=== PATIENT | female | born 1970 | race American Indian/Alaskan Native ===

== ENCOUNTER 2016-12-31 12:50 | Emergency (ER) | payer OTHER ==
[2016-12-31] MEDS ORDERED: TORADOL IM ONE (13:16)
--- NOTE | 2016-12-31 13:16 | Emergency Department Report ---
Stated Complaint: RIGHT KNEE PAIN Time Seen by Provider: 12/31/16 13:11 - HPI History of Present Illness: PT states she takes Tramadol for R knee pain but it makes her sick. PT states she needs a knee replacement. PT is a pt of [facility]. PT states she has a work note for frequent sitting but her work is not allowing that. PT states she was at work and the pain increased. - ROS Review of Systems: + knee pain - Exam Physical Exam: ambulatory with limp MSE screening note: Focused history and physical exam performed. Due to findings the following was ordered: med ED Disposition for MSE Condition: Stable
[2016-12-31 13:18] VITALS: BP 126/89
[2016-12-31] MEDS: TORADOL IM ONE (17:07)
--- NOTE | 2016-12-31 18:07 | Emergency Department Report ---
Entered by ALYCIA SYLVESTER, acting as scribe for JANELLE BRISENO NP. ED Extremity Problem HPI - General Chief complaint: Extremity Injury, Lower Stated complaint: RIGHT KNEE PAIN Time Seen by Provider: 12/31/16 13:11 Source: patient Mode of arrival: Ambulatory Limitations: No Limitations - History of Present Illness Initial comments: This is a 46 y/o female, nontoxic, well nourished in appearance, no acute signs of distress with a PMHx of arthritis and chronic right knee pain presents with an acute episode of chronic right knee pain that began this morning. 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 Rates pain a 10/10 in severity, which she describes as aching in quality. Aggravated with weight bearing, movement, palpation, and exertion, and alleviated with immobilization. Denies any recent knee trauma/injury, numbness, tingling, fever, chills, chest pain, SOB, KIM, and dizziness. Patient states she takes prescribed Tramadol for right knee pain, which she states she stopped taking because it made her sick. Patient states she goes to [facility] for pain management and she reports she needs a knee replacement. Reports she hasn't been able to get into contact with her orthopedic today to obtain different pain medication for relief. Notes she's been having chronic right knee pain for 13 years. Patient requests a knee immobilizer and a strong medication in the ED for her to sleep in. Patient's boyfriend is currently bedside. NKDA. MENDEZ Complaint: joint paint -: This morning Location: right, knee History of Same: Yes (x 13 years) -: No myalgia, Yes arthralgia, No fever, No associated dyspnea, No associated chest pain Radiation: none Severity scale (0 -10): 10 Quality: aching Consistency: constant Improves with: immobilization Worsens with: weight bearing, walking, exertion, palpation Associated Symptoms: denies other symptoms, arthralgias. denies: chest pain, shortness of breath, fever, myalgias, rash - Related Data Previous Rx's Medication Instructions Recorded Last Taken Type Nitrofurantoin [place]/M-Cryst 100 mg PO Q12HR #14 capsule 11/07/13 Unknown Rx [Macrobid] Ondansetron [Zofran Odt] 4 mg PO Q4H #10 tab.rapdis 11/07/13 Unknown Rx traMADol [Ultram] 50 mg PO Q6HR PRN #20 tablet 05/10/15 Unknown Rx Acetaminophen/Codeine [Tylenol #3] 1 tab PO Q6H PRN #15 tab 06/05/16 Unknown Rx Amoxicillin [Amoxicillin TAB] 875 mg PO BID #20 tablet 06/05/16 Unknown Rx Ibuprofen [Motrin] 600 mg PO Q8H PRN #21 tablet 06/05/16 Unknown Rx HYDROcodone/APAP 7.5-325 [Gepp 1 each PO Q6HR PRN #6 tablet 12/31/16 Unknown Rx 7.5/325] Allergies Allergy/AdvReac Type Severity Reaction Status Date / Time No Known Allergies Allergy Verified 05/09/15 23:59 ED Review of Systems Comment: All other systems reviewed and negative Constitutional: denies: chills, fever Eyes: denies: eye pain, eye discharge, vision change ENT: denies: ear pain, throat pain Respiratory: denies: cough, orthopnea, shortness of breath, SOB with exertion, SOB at rest, stridor, wheezing Cardiovascular: denies: chest pain, palpitations, dyspnea on exertion, orthopnea , edema, syncope, paroxysmal nocturnal dyspnea Endocrine: no symptoms reported Gastrointestinal: denies: abdominal pain, nausea, vomiting, diarrhea Genitourinary: denies: urgency, dysuria, discharge Musculoskeletal: arthralgia (RT knee pain). denies: back pain, joint swelling, myalgia Skin: denies: rash, lesions Neurological: denies: headache, weakness, paresthesias Psychiatric: denies: anxiety, depression Hematological/Lymphatic: denies: easy bleeding, easy bruising ED Past Medical Hx - Past Medical History Previous Medical History?: Yes Hx Arthritis: Yes Additional medical history: Miscarriage, Right knee pain for 13 years - Surgical History Past Surgical History?: Yes Additional Surgical History: D&C - Family History Family history: no significant - Social History Smoking Status: Current Every Day Smoker Substance Use Type: Alcohol, Marijuana, Prescribed - Medications Home Medications: Home Medications Medication Instructions Recorded Confirmed Last Taken Type Nitrofurantoin [place]/M-Cryst 100 mg PO Q12HR #14 capsule 11/07/13 Unknown Rx [Macrobid] Ondansetron [Zofran Odt] 4 mg PO Q4H #10 tab.rapdis 07/13/14 Unknown Rx traMADol [Ultram] 50 mg PO Q6HR PRN #20 tablet 05/10/15 Unknown Rx Acetaminophen/Codeine [Tylenol #3] 1 tab PO Q6H PRN #15 tab 06/05/16 Unknown Rx Amoxicillin [Amoxicillin TAB] 875 mg PO BID #20 tablet 06/05/16 Unknown Rx Ibuprofen [Motrin] 600 mg PO Q8H PRN #21 tablet 06/05/16 Unknown Rx HYDROcodone/APAP 7.5-325 [Gepp 1 each PO Q6HR PRN #6 tablet 12/31/16 Unknown Rx 7.5/325] ED Physical Exam - General Limitations: No Limitations General appearance: alert, in no apparent distress - Head Head exam: Present: atraumatic, normocephalic - Eye Eye exam: Present: normal appearance, PERRL, EOMI. Absent: scleral icterus, conjunctival injection, nystagmus, periorbital swelling, periorbital tenderness Pupils: Present: normal accommodation - ENT ENT exam: Present: normal exam, normal orophraynx, mucous membranes moist, TM's normal bilaterally, normal external ear exam - Neck Neck exam: Present: normal inspection, full ROM. Absent: tenderness, meningismus, lymphadenopathy, thyromegaly - Respiratory Respiratory exam: Present: normal lung sounds bilaterally. Absent: respiratory distress, wheezes, rales, rhonchi, stridor, chest wall tenderness, accessory muscle use, decreased breath sounds, prolonged expiratory - Cardiovascular Cardiovascular Exam: Present: regular rate, normal rhythm, normal heart sounds. Absent: bradycardia, tachycardia, irregular rhythm, systolic murmur, diastolic murmur, rubs, gallop - GI/Abdominal GI/Abdominal exam: Present: soft, normal bowel sounds. Absent: distended, tenderness, guarding, rebound, rigid - Extremities Exam Extremities exam: Present: full ROM, tenderness (anterior aspect of RT knee), normal capillary refill. Absent: normal inspection, pedal edema, joint swelling , calf tenderness - Expanded Lower Extremity Exam Right Hip exam: Present: normal inspection, full ROM, external rotation, internal rotation, pelvic stability. Absent: tenderness, swelling, abrasion, laceration , ecchymosis, deformity, crepidus, dislocation, erythema, shortening Upper Leg exam: Present: normal inspection, full ROM. Absent: tenderness, swelling, abrasion, laceration, ecchymosis, deformity, crepidus, dislocation, erythema Knee exam: Present: full ROM, tenderness (antreior aspect of RT knee), full knee extension. Absent: normal inspection, swelling, abrasion, laceration, ecchymosis, deformity, crepidus, dislocation, erythema, effusion, pain w/ pronation/supination, posterior draw sign, pain/laxity with valgus, pain/laxity with varus Lower Leg exam: Present: normal inspection, full ROM. Absent: tenderness, swelling, abrasion, laceration, ecchymosis, deformity, crepidus, dislocation, erythema, palpable cord, Libby's sign Ankle exam: Present: normal inspection, full ROM. Absent: tenderness, swelling , abrasion, laceration, ecchymosis, deformity, crepidus, dislocation, erythema, anterior draw sign Foot/Toe exam: Present: normal inspection, full ROM. Absent: tenderness, swelling, abrasion, laceration, ecchymosis, deformity, crepidus, dislocation, erythema, amputation, puncture wound, foreign body, calcaneal tenderness, tenderness at base of 5th metatarsal, nail avulsion, subungual hematoma Neuro vascular tendon exam: Present: no vascular compromise. Absent: pulse deficit, abnormal cap refill, motor deficit, sensory deficit, tendon deficit, extremity cold to touch, pallor, abnormal 2-point discrimination, decreased fine /light touch, foot drop, peroneal nerve deficit, significant pain with passive ROM of distal joint Gait: Positive: observed and normal - Back Exam Back exam: Present: normal inspection, full ROM. Absent: tenderness, CVA tenderness (R), CVA tenderness (L), muscle spasm, paraspinal tenderness, vertebral tenderness - Neurological Exam Neurological exam: Present: alert, oriented X3, CN II-XII intact, normal gait, reflexes normal. Absent: motor sensory deficit - Psychiatric Psychiatric exam: Present: normal affect, normal mood - Skin Skin exam: Present: warm, dry, intact. Absent: rash ED Course Vital Signs 12/31/16 13:13 Temperature 98.1 F Pulse Rate 84 Respiratory 20 Rate Blood Pressure 126/89 O2 Sat by Pulse 100 Oximetry ED Medical Decision Making - Medical Decision Making This is a 46-year-old female with a chronic right knee pain. Patient came in with a prescription of tramadol and stated this does not help her pain and is requested for a stronger medication. Patient stated she was not able to follow up with her orthopedic doctor because the office was closed. Patient states she was able to sleep due to the pain. Patient also requesting for a knee immobilizer. Patient received Gepp 7.5 mg for 2 days with hoping she will follow up with her orthopedic doctor by then and was instructed to not operate any machinery while taking Gepp. ED Disposition Clinical Impression: Chronic knee pain Qualifiers: Laterality: right Qualified Code(s): M25.561 - Pain in right knee; G89.29 - Other chronic pain Disposition: - TO HOME OR SELFCARE Is pt being admited?: No Does the pt Need Aspirin: No Condition: Stable Instructions: Knee Pain (ED), Knee Immobilizer (ED) Additional Instructions: Follow-up with your orthopedic doctor in 24 hours course of his worsening continue with the emergency room as soon as possible. Taken Gepp as prescribed for pain as needed but do not operate any machinery while taking Gepp due to sedation. Prescriptions: HYDROcodone/APAP 7.5-325 [Gepp 7.5/325] 1 each PO Q6HR PRN #6 tablet PRN Reason: Pain Referrals: PRIMARY CARE, [Primary Care Provider] - 3-5 Days MORGAN CORRALES MD [Staff Physician] - 3-5 Days [facility] [Outside] - 3-5 Days [facility] [Outside] - 3-5 Days This documentation as recorded by the NGA harris JASMINE,accurately reflects the service I personally performed and the decisions made by ,JANELLE BRISENO, NATACHA.
== END 2016-12-31 17:07 | disposition home or self-care (01) ==
LOC: ED 12:50
DX: M25.561 Pain in right knee (principal); G89.29 Other chronic pain; M19.90 Unspecified osteoarthritis, unspecified site; F17.200 Nicotine dependence, unspecified, uncomplicated; F12.10 Cannabis abuse, uncomplicated; X58.XXXA Exposure to other specified factors, initial encounter; Y93.89 Activity, other specified; Y92.89 Other specified places as the place of occurrence of the external cause; Y99.8 Other external cause status
CPT/HCPCS: 29505; 96372; 99282; J1885

== ENCOUNTER 2017-03-14 00:02 | Inpatient (IN) | payer OTHER, MEDICAID ==
[2017-03-14 00:44] LABS: Basophils % (Auto) 0.7 % (0.0-1.8); Eosinophils % (Auto) 1.4 % (0.0-4.3); Hematocrit 47.3 % (30.3-42.9); Hemoglobin 15.3 gm/dl (10.1-14.3); Mean Corpuscular HGB Conc 32 % (30-34); Mean Corpuscular Hemoglobin 29 pg (28-32); Mean Corpuscular Volume 90 fl (79-97); Platelet Count 209 K/mm3 (140-440); Red Blood Count 5.27 M/mm3 (3.65-5.03); Red Cell Distribution Width 15.3 % (13.2-15.2)
[2017-03-14 01:00] LABS: INR 0.8 (0.87-1.13)
[2017-03-14 01:01] LABS: Partial Thromboplastin Time 28.4 Sec. (24.2-36.6)
[2017-03-14 01:02] LABS: Anion Gap 21 mmol/L; BUN/Creatinine Ratio 17; Blood Urea Nitrogen 15 mg/dL (7-17); Calcium 8.9 mg/dL (8.4-10.2); Carbon Dioxide 24 mmol/L (22-30); Chloride 97.7 mmol/L (98-107); Glucose 96 mg/dL (65-100); Potassium 4.4 mmol/L (3.6-5.0); Sodium 138 mmol/L (137-145)
[2017-03-14] MEDS ORDERED: NORCO 5/325 PO ONE (06:25)
[2017-03-14] MEDS ORDERED: ASPIRIN PO ONE (06:25)
--- NOTE | 2017-03-14 06:31 | Emergency Department Report ---
HPI - General Chief Complaint: Neuro Symptoms/Deficit Time Seen by Provider: 03/14/17 06:11 - HPI HPI: Room 1 The patient is a 46-year-old female presented with a chief complaint of right lower extremity and chest pain. The patient states 4 days ago she developed pain in her right calf. Patient denies any recent trauma. Patient states she has a history of "3 disc problems" in her lower back which required "injections. " Patient states she had never had Pain before. The patient states she contacted her orthopedic surgeon soon turn advised her to come to the ED. The patient states she went to [facility] and had labs drawn. The patient states the provider told her her blood work was abnormal and they wanted to perform a Doppler of her right lower extremity. The patient states she left the facility before receiving her Doppler secondary to the wait. The patient states her family convinced her to come back to the emergency department. The patient states 4 days ago she also developed substernal chest pressure that has been intermittent and associated with diaphoresis. Patient denies shortness of breath or nausea/vomiting. Patient states she's never had a stress test or cardiac catheterization Location: Chest, right lower extremity Duration: 5 days Quality: Pain, pressure Severity: 02/04 Modifying factors: [see above] Context: [see above] Mode of transportation: [not driving] ED Past Medical Hx - Past Medical History Hx Arthritis: Yes Additional medical history: Miscarriage, Right knee pain for 13 years - Surgical History Additional Surgical History: D&C - Family History Family history: no significant - Social History Smoking Status: Never Smoker Substance Use Type: None - Medications Home Medications: Home Medications Medication Instructions Recorded Confirmed Last Taken Type Nitrofurantoin [place]/M-Cryst 100 mg PO Q12HR #14 capsule 11/07/13 Unknown Rx [Macrobid] Ondansetron [Zofran Odt] 4 mg PO Q4H #10 tab.rapdis 11/07/13 Unknown Rx traMADol [Ultram] 50 mg PO Q6HR PRN #20 tablet 05/10/15 Unknown Rx Acetaminophen/Codeine [Tylenol #3] 1 tab PO Q6H PRN #15 tab 06/05/16 Unknown Rx Amoxicillin [Amoxicillin TAB] 875 mg PO BID #20 tablet 06/05/16 Unknown Rx Ibuprofen [Motrin] 600 mg PO Q8H PRN #21 tablet 06/05/16 Unknown Rx HYDROcodone/APAP 7.5-325 [[place] 1 each PO Q6HR PRN #6 tablet 12/31/16 Unknown Rx 7.5/325] ED Review of Systems ROS: Stated complaint: leg numbness Other details as noted in HPI Comment: All other systems reviewed and negative Constitutional: denies: chills, fever Eyes: denies: eye pain, eye discharge, vision change ENT: denies: ear pain, throat pain Respiratory: denies: cough, shortness of breath, wheezing Cardiovascular: chest pain Endocrine: no symptoms reported Gastrointestinal: denies: abdominal pain, nausea, diarrhea Genitourinary: denies: urgency, dysuria, discharge Musculoskeletal: myalgia Skin: denies: rash, lesions Neurological: paresthesias. denies: headache, weakness Psychiatric: denies: anxiety, depression Hematological/Lymphatic: denies: easy bleeding, easy bruising Physical Exam - Physical Exam Vital Signs: Vital Signs 03/14/17 03/14/17 03/14/17 00:14 01:50 01:53 Temperature 98.1 F 98 F Pulse Rate 108 H 90 Respiratory 18 16 Rate Blood Pressure 124/93 137/83 Blood Pressure 137/83 [Left] O2 Sat by Pulse 100 100 Oximetry 03/14/17 03/14/17 03/14/17 02:00 02:15 02:30 Temperature Pulse Rate Respiratory Rate Blood Pressure 114/78 126/81 112/64 Blood Pressure [Left] O2 Sat by Pulse 100 Oximetry 03/14/17 03/14/17 03/14/17 02:45 03:00 03:15 Temperature Pulse Rate Respiratory Rate Blood Pressure 108/66 112/63 112/64 Blood Pressure [Left] O2 Sat by Pulse 100 97 100 Oximetry 03/14/17 03/14/17 03/14/17 03:30 03:45 04:00 Temperature Pulse Rate Respiratory Rate Blood Pressure 130/86 115/67 103/50 Blood Pressure [Left] O2 Sat by Pulse 100 100 100 Oximetry 03/14/17 03/14/17 03/14/17 04:15 04:30 04:45 Temperature Pulse Rate Respiratory Rate Blood Pressure 130/86 100/55 110/65 Blood Pressure [Left] O2 Sat by Pulse 100 99 99 Oximetry 03/14/17 03/14/17 03/14/17 05:00 05:15 05:30 Temperature Pulse Rate Respiratory Rate Blood Pressure 117/70 96/53 100/55 Blood Pressure [Left] O2 Sat by Pulse 99 100 100 Oximetry Physical Exam: GENERAL: The patient is well-developed well-nourished female sleeping on stretcher not appearing to be in acute distress. [] HEENT: Normocephalic. Atraumatic. Extraocular motions are intact. Patient has moist mucous membranes. NECK: Supple. Trachea midline CHEST/LUNGS: There is no respiratory distress noted. HEART/CARDIOVASCULAR: Regular. There is no tachycardia. ABDOMEN: Abdomen is soft, nontender. Patient has normal bowel sounds. There is no abdominal distention. SKIN: There is no rash. There is no edema. There is no diaphoresis. NEURO: The patient is awake, alert, and oriented. The patient is cooperative. The patient has no focal neurologic deficits. The patient has normal speech. Cranial nerves II through XII grossly intact, no drift. Normal sensation throughout MUSCULOSKELETAL: There is pain in the right calf. There is no evidence of acute injury. ED Course Vital Signs 03/14/17 03/14/17 03/14/17 00:14 01:50 01:53 Temperature 98.1 F 98 F Pulse Rate 108 H 90 Respiratory 18 16 Rate Blood Pressure 124/93 137/83 Blood Pressure 137/83 [Left] O2 Sat by Pulse 100 100 Oximetry 03/14/17 03/14/17 03/14/17 02:00 02:15 02:30 Temperature Pulse Rate Respiratory Rate Blood Pressure 114/78 126/81 112/64 Blood Pressure [Left] O2 Sat by Pulse 100 Oximetry 03/14/17 03/14/17 03/14/17 02:45 03:00 03:15 Temperature Pulse Rate Respiratory Rate Blood Pressure 108/66 112/63 112/64 Blood Pressure [Left] O2 Sat by Pulse 100 97 100 Oximetry 03/14/17 03/14/17 03/14/17 03:30 03:45 04:00 Temperature Pulse Rate Respiratory Rate Blood Pressure 130/86 115/67 103/50 Blood Pressure [Left] O2 Sat by Pulse 100 100 100 Oximetry 03/14/17 03/14/17 03/14/17 04:15 04:30 04:45 Temperature Pulse Rate Respiratory Rate Blood Pressure 130/86 100/55 110/65 Blood Pressure [Left] O2 Sat by Pulse 100 99 99 Oximetry 03/14/17 03/14/17 03/14/17 05:00 05:15 05:30 Temperature Pulse Rate Respiratory Rate Blood Pressure 117/70 96/53 100/55 Blood Pressure [Left] O2 Sat by Pulse 99 100 100 Oximetry ED Medical Decision Making - Lab Data Result diagrams: 03/14/17 00:29 03/14/17 00:29 Laboratory Tests 03/14/17 03/14/17 03/14/17 00:29 00:29 00:29 WBC 11.0 RBC 5.27 H Hgb 15.3 H Hct 47.3 H MCV 90 MCH 29 MCHC 32 RDW 15.3 H Plt Count 209 Lymph % (Auto) 22.5 [place] % (Auto) 10.0 H Eos % (Auto) 1.4 Baso % (Auto) 0.7 Lymph # 2.5 [place] # 1.1 H Eos # 0.2 Baso # 0.1 Seg Neutrophils % 65.4 Seg Neutrophils # 7.2 PT 11.5 L INR 0.80 L APTT 28.4 Sodium 138 Potassium 4.4 Chloride 97.7 L Carbon Dioxide 24 Anion Gap 21 BUN 15 Creatinine 0.9 Estimated GFR > 60 BUN/Creatinine Ratio 17 Glucose 96 Calcium 8.9 Total Creatine Kinase CK-MB (CK-2) CK-MB (CK-2) Rel Index Troponin T HCG, Qual 03/14/17 03/14/17 00:29 00:29 WBC RBC Hgb Hct MCV MCH MCHC RDW Plt Count Lymph % (Auto) [place] % (Auto) Eos % (Auto) Baso % (Auto) Lymph # [place] # Eos # Baso # Seg Neutrophils % Seg Neutrophils # PT INR APTT Sodium Potassium Chloride Carbon Dioxide Anion Gap BUN Creatinine Estimated GFR BUN/Creatinine Ratio Glucose Calcium Total Creatine Kinase 75 CK-MB (CK-2) 1.4 CK-MB (CK-2) Rel Index 1.8 Troponin T < 0.010 HCG, Qual Negative - EKG Data -: EKG Interpreted by Me EKG shows normal: sinus rhythm Rate: normal - EKG Data When compared to previous EKG there are: previous EKG unavailable - Radiology Data Radiology results: report reviewed (right lower extremity Doppler), image reviewed (chest x-ray, right lower extremities Doppler) interpreted by me: Chest x-ray-ET tube in place. No focal infiltrate, no pneumothorax Right lower extremities Doppler (discussed with technologist)-positive DVT - Differential Diagnosis DVT, ACS, pericarditis, GERD Critical care attestation.: If time is entered above; I have spent that time in minutes in the direct care of this critically ill patient, excluding procedure time. ED Disposition Clinical Impression: Chest pressure, Right leg DVT Disposition: OP ADMIT IP TO THIS HOSP Is pt being admited?: Yes Does the pt Need Aspirin: Yes Condition: Fair Referrals: PRIMARY CARE, [Primary Care Provider] - 3-5 Days Time of Disposition: 10:25 (hospitalist notified)
[2017-03-14 06:47] LABS: Creatine Kinase MB 1.4 ng/mL (0.0-4.0)
[2017-03-14 06:48] LABS: Creatine Kinase 75 units/L (30-135)
--- NOTE | 2017-03-14 08:57 | XRay Report ---
Single view chest: History: Chest pain. Findings: Normal cardiomediastinal silhouette. Trachea is midline. No consolidation, pneumothorax or pleural effusion. Impression: No acute cardiopulmonary findings.
[2017-03-14] MEDS ORDERED: LOVENOX SUB-Q ONE (09:21)
--- NOTE | 2017-03-14 10:15 | Cat Scan Report ---
CTA chest: History: Chest pain. Findings: There is no evidence of aortic aneurysm or pulmonary embolism. No pleural or pericardial effusion. No mediastinal mass. Bilateral basilar scarring. No consolidation or nodularity. Impression: Bibasilar scarring.
[2017-03-14] MEDS ORDERED: DULCOLAX PR PRN (14:06)
[2017-03-14] MEDS ORDERED: ZOFRAN IV PRN (14:06)
[2017-03-14] MEDS ORDERED: TYLENOL PO PRN (14:06)
[2017-03-14] MEDS ORDERED: MILK OF MAGNESIA PO PRN (14:06)
--- NOTE | 2017-03-14 14:14 | History and Physical Report ---
History of Present Illness Date of examination: 03/14/17 Date of admission: 03/14/17 10:22 History of present illness: This is a 46-year-old female who presents with chief complaint of right lower extremity pain and chest pain. Patient denies any chest pain currently. No shortness of breath or diaphoresis. The patient states 4 days ago she also developed substernal chest pressure that has been intermittent and associated with diaphoresis. The patient reportedly contacted her orthopedic surgeon regarding her lower extremity pain and was told to come to the emergency room. Patient denies any other complaints or past medical history. No headaches or visual disturbance. No cough or cold symptoms. No fever chills. Past History Past Medical History: No medical history Past Surgical History: No surgical history Social history: no significant social history Family history: no significant family history Medications and Allergies Allergies Allergy/AdvReac Type Severity Reaction Status Date / Time No Known Allergies Allergy Verified 05/09/15 23:59 Home Medications Medication Instructions Recorded Confirmed Last Taken Type Acetaminophen/Codeine [Tylenol #3] 1 tab PO Q6H PRN 03/14/17 03/14/17 Unknown History Cyclobenzaprine [Flexeril] 10 mg PO HS 03/14/17 03/14/17 Unknown History Ibuprofen [Motrin] 800 mg PO Q8HR PRN 03/14/17 03/14/17 Unknown History Active Meds: Active Medications Acetaminophen (Tylenol) 650 mg PO Q4H PRN PRN Reason: Pain MILD(1-3)/Fever >100.5/KIM Acetaminophen/Hydrocodone Bitart ([place] 5/325) 1 each PO Q6H PRN PRN Reason: Pain, Moderate (4-6) Bisacodyl (Dulcolax) 10 mg CO QDAY PRN PRN Reason: Constipation unrelieved by MOM Influenza Virus Vaccine Quadrival (Fluarix Quad [id number](36 Mos+) 0.5 ml IM .ONCE ONE Stop: 03/15/17 12:01 Magnesium Hydroxide (Milk Of Magnesia) 30 ml PO Q4H PRN PRN Reason: Constipation Review of Systems All systems: negative Exam - Constitutional Vitals: Temp Pulse Resp BP Pulse Ox 98 F 90 16 100/55 100 03/14/17 01:50 03/14/17 01:50 03/14/17 06:55 03/14/17 05:30 03/14/17 05:30 General appearance: Present: no acute distress, well-nourished - EENT Eyes: Present: PERRL ENT: hearing intact, clear oral mucosa - Neck Neck: Present: supple, normal ROM - Respiratory Respiratory effort: normal Respiratory: bilateral: CTA - Cardiovascular Heart Sounds: Present: S1 & S2. Absent: rub, click - Extremities Extremities: pulses symmetrical, No edema Peripheral Pulses: within normal limits - Abdominal General gastrointestinal: Present: soft, non-tender, non-distended, normal bowel sounds Female genitourinary: Present: normal - Integumentary Integumentary: Present: clear, warm, dry - Musculoskeletal Musculoskeletal: gait normal, strength equal bilaterally - Psychiatric Psychiatric: appropriate mood/affect, intact judgment & insight - Neurologic Neurologic: CNII-XII intact, moves all extremities Results - Labs CBC & Chem 7: 03/14/17 00:29 03/14/17 00:29 Labs: Laboratory Last Values WBC 11.0 K/mm3 (4.5-11.0) 03/14/17 00:29 RBC 5.27 M/mm3 (3.65-5.03) H 03/14/17 00:29 Hgb 15.3 gm/dl (10.1-14.3) H 03/14/17 00:29 Hct 47.3 % (30.3-42.9) H 03/14/17 00:29 MCV 90 fl (79-97) 03/14/17 00:29 MCH 29 pg (28-32) 03/14/17 00:29 MCHC 32 % (30-34) 03/14/17 00:29 RDW 15.3 % (13.2-15.2) H 03/14/17 00:29 Plt Count 209 K/mm3 (140-440) 03/14/17 00:29 Lymph % (Auto) 22.5 % (13.4-35.0) 03/14/17 00:29 [place] % (Auto) 10.0 % (0.0-7.3) H 03/14/17 00:29 Eos % (Auto) 1.4 % (0.0-4.3) 03/14/17 00:29 Baso % (Auto) 0.7 % (0.0-1.8) 03/14/17 00: Lymph # 2.5 K/mm3 (1.2-5.4) 03/14/17 00: [place] # 1.1 K/mm3 (0.0-0.8) H 03/14/17 00: Eos # 0.2 K/mm3 (0.0-0.4) 03/14/17 00: Baso # 0.1 K/mm3 (0.0-0.1) 03/14/17: Seg Neutrophils % 65.4 % (40.0-70.0) 03/14/17 00: Seg Neutrophils # 7.2 K/mm3 (1.8-7.7) 03/14/17: PT 11.5 Sec. (12.2-14.9) L 03/14/17: INR 0.80 (0.87-1.13) L 03/14/17: APTT 28.4 Sec. (24.2-36.6) 03/14/17 00: Sodium 138 mmol/L (137-145) 03/14/17 00: Potassium 4.4 mmol/L (3.6-5.0) 03/14/17: Chloride 97.7 mmol/L (98-107) L 03/14/17: Carbon Dioxide 24 mmol/L (22-30) 03/14/17: Anion Gap 21 mmol/L 03/14/17: BUN 15 mg/dL (7-17) 03/14/17: Creatinine 0.9 mg/dL (0.7-1.2) 03/14/17 00: Estimated GFR > 60 ml/min 03/14/17 00: BUN/Creatinine Ratio 17 % 03/14/17: Glucose 96 mg/dL (65-100) 03/14/17: Calcium 8.9 mg/dL (8.4-10.2) 03/14/17: Total Creatine Kinase 75 units/L (30-135) 03/14/17 00: CK-MB (CK-2) 1.4 ng/mL (0.0-4.0) 03/14/17 00: CK-MB (CK-2) Rel Index 1.8 (0-4) 03/14/17 00:29 Troponin T < 0.010 ng/mL (0.00-0.029) 03/14/17 00:29 HCG, Qual Negative (Negative) 03/14/17 00:29 Assessment and Plan Assessment and plan: Right lower extremity DVT. Patient with acute DVT in the right peroneal veins. Patient has been started on Lovenox. I have discussed the case with case management regarding potential discharge with teddy with regards to her insurance. CTA negative for PE. Chest pain. Patient will be scheduled for stress thallium in the morning.
[2017-03-14] MEDS ORDERED: SODIUM CHLORIDE FLUSH SYRINGE 10 ML IV PRN (14:15)
[2017-03-14] MEDS: NORCO 5/325 PO PRN ×2 (14:17→20:08)
[2017-03-14 14:57] LABS: Basophils % (Auto) 0.4 % (0.0-1.8); Eosinophils % (Auto) 2.3 % (0.0-4.3); Hematocrit 42.8 % (30.3-42.9); Hemoglobin 14.2 gm/dl (10.1-14.3); Mean Corpuscular HGB Conc 33 % (30-34); Mean Corpuscular Hemoglobin 29 pg (28-32); Mean Corpuscular Volume 89 fl (79-97); Platelet Count 204 K/mm3 (140-440); Red Blood Count 4.83 M/mm3 (3.65-5.03); Red Cell Distribution Width 15.6 % (13.2-15.2); White Blood Count 7.9 K/mm3 (4.5-11.0)
[2017-03-14 15:48] LABS: Anion Gap 16 mmol/L; BUN/Creatinine Ratio 14; Blood Urea Nitrogen 11 mg/dL (7-17); Calcium 8.3 mg/dL (8.4-10.2); Carbon Dioxide 29 mmol/L (22-30); Chloride 99.5 mmol/L (98-107); Glucose 78 mg/dL (65-100); Potassium 3.8 mmol/L (3.6-5.0); Sodium 141 mmol/L (137-145)
[2017-03-15] MEDS: NORCO 5/325 PO PRN ×4 (05:31→23:16)
[2017-03-15 06:29] LABS: Hemoglobin 13.9 gm/dl (10.1-14.3); Red Blood Count 4.79 M/mm3 (3.65-5.03); White Blood Count 6.8 K/mm3 (4.5-11.0)
[2017-03-15 06:30] LABS: Basophils % (Auto) 0.5 % (0.0-1.8); Eosinophils % (Auto) 1.6 % (0.0-4.3); Hematocrit 42.4 % (30.3-42.9); Mean Corpuscular HGB Conc 33 % (30-34); Mean Corpuscular Hemoglobin 29 pg (28-32); Mean Corpuscular Volume 88 fl (79-97); Platelet Count 194 K/mm3 (140-440); Red Cell Distribution Width 15.8 % (13.2-15.2)
[2017-03-15 06:44] LABS: Anion Gap 12 mmol/L; BUN/Creatinine Ratio 10; Blood Urea Nitrogen 7 mg/dL (7-17); Calcium 8.8 mg/dL (8.4-10.2); Carbon Dioxide 30 mmol/L (22-30); Chloride 99.6 mmol/L (98-107); Glucose 94 mg/dL (65-100); Potassium 4.2 mmol/L (3.6-5.0); Sodium 137 mmol/L (137-145)
[2017-03-15] MEDS ORDERED: LEXISCAN IV ONE (08:43)
--- NOTE | 2017-03-15 11:11 | Progress Note ---
Assessment and Plan Assessment and plan: Right lower extremity DVT. Patient with acute DVT in the right peroneal veins. Patient has been started on Lovenox. I have discussed the case with case management regarding potential discharge with teddy with regards to her insurance. CTA negative for PE. Chest pain. Patient will be scheduled for stress thallium in the morning. Right lower extremity pain. Etiology secondary to #1. Pain control. History Interval history: No new issues overnight. Hospitalist Physical - Constitutional Vitals: Temp Pulse Resp BP Pulse Ox 99.1 F 78 14 122/76 100 03/15/17 07:44 03/15/17 07:44 03/15/17 07:44 03/15/17 07:44 03/15/17 07:44 General appearance: Present: no acute distress, well-nourished - EENT Eyes: Present: PERRL, EOM intact ENT: hearing intact, clear oral mucosa, dentition normal - Neck Neck: Present: supple, normal ROM - Respiratory Respiratory effort: normal Respiratory: bilateral: CTA - Cardiovascular Rhythm: regular Heart Sounds: Present: S1 & S2. Absent: gallop, rub - Extremities Extremities: no ischemia, No edema, Full ROM - Abdominal General gastrointestinal: soft, non-tender, non-distended, normal bowel sounds - Integumentary Integumentary: Present: clear, warm, dry - Neurologic Neurologic: CNII-XII intact, moves all extremities Results - Labs CBC & Chem 7: 03/15/17 05:57 03/15/17 05:57 Labs: Laboratory Last Values WBC 6.8 K/mm3 (4.5-11.0) 03/15/17 05:57 RBC 4.79 M/mm3 (3.65-5.03) 03/15/17 05:57 Hgb 13.9 gm/dl (10.1-14.3) 03/15/17 05:57 Hct 42.4 % (30.3-42.9) 03/15/17 05:57 MCV 88 fl (79-97) 03/15/17 05:57 MCH 29 pg (28-32) 03/15/17 05:57 MCHC 33 % (30-34) 03/15/17 05:57 RDW 15.8 % (13.2-15.2) H 03/15/17 05:57 Plt Count 194 K/mm3 (140-440) 03/15/17 05:57 Lymph % (Auto) 18.9 % (13.4-35.0) 03/15/17 05:57 [place] % (Auto) 10.8 % (0.0-7.3) H 03/15/17 05:57 Eos % (Auto) 1.6 % (0.0-4.3) 03/15/17 05:57 Baso % (Auto) 0.5 % (0.0-1.8) 03/15/17 05:57 Lymph # 1.3 K/mm3 (1.2-5.4) 03/15/17 05:57 [place] # 0.7 K/mm3 (0.0-0.8) 03/15/17 05:57 Eos # 0.1 K/mm3 (0.0-0.4) 03/15/17 05:57 Baso # 0.0 K/mm3 (0.0-0.1) 03/15/17 05:57 Seg Neutrophils % 68.2 % (40.0-70.0) 03/15/17 05:57 Seg Neutrophils # 4.6 K/mm3 (1.8-7.7) 03/15/17 05:57 PT 11.5 Sec. (12.2-14.9) L 03/14/17 00:29 INR 0.80 (0.87-1.13) L 03/14/17 00:29 APTT 28.4 Sec. (24.2-36.6) 03/14/17 00:29 Sodium 137 mmol/L (137-145) 03/15/17 05:57 Potassium 4.2 mmol/L (3.6-5.0) 03/15/17 05:57 Chloride 99.6 mmol/L (98-107) 03/15/17 05:57 Carbon Dioxide 30 mmol/L (22-30) 03/15/17 05:57 Anion Gap 12 mmol/L 03/15/17 05:57 BUN 7 mg/dL (7-17) 03/15/17 05:57 Creatinine 0.7 mg/dL (0.7-1.2) 03/15/17 05:57 Estimated GFR > 60 ml/min 03/15/17 05:57 BUN/Creatinine Ratio 10 % 03/15/17 05:57 Glucose 94 mg/dL (65-100) 03/15/17 05:57 Calcium 8.8 mg/dL (8.4-10.2) 03/15/17 05:57 Total Creatine Kinase 75 units/L (30-135) 03/14/17 00:29 CK-MB (CK-2) 1.4 ng/mL (0.0-4.0) 03/14/17 00:29 CK-MB (CK-2) Rel Index 1.8 (0-4) 03/14/17 00:29 Troponin T < 0.010 ng/mL (0.00-0.029) 03/14/17 19:39 HCG, Qual Negative (Negative) 03/14/17 00:29
[2017-03-15] MEDS ORDERED: Fluarix Quad 2017-2018(36 MOS+ IM ONE (12:00)
--- NOTE | 2017-03-15 15:03 | Discharge Summary ---
Providers - Providers Date of Admission: 03/14/17 10:22 Date of discharge: 03/16/17 Attending physician: KENDALL CURRY 03/14/17 Consult to Cardiac Rehabilitation [CONS] Routine Reason For Exam: Phase I Primary care physician: REMELT WORKER Hospitalization Reason for admission: DVT Condition: Fair Hospital course: This is a 46-year-old female who presents with chief complaint of right lower extremity pain and was admitted with diagnosis of right lower extremity DVT. Patient received initially Lovenox subcutaneously therapeutic dose. Patient was later transitioned to eliquis. Case management was consulted for arranging prescriptions for eliquis as an outpatient. Dedicated discharge time 32 minutes. Disposition: DC- TO HOME OR SELFCARE Time spent for discharge: 32 - Discharge Diagnoses (1) Right leg DVT Status: Acute Core Measure Documentation - Palliative Care Palliative Care/ Comfort Measures: Not Applicable - Core Measures Any of the following diagnoses?: none Exam - Constitutional Vitals: Temp Pulse Resp BP Pulse Ox 99.1 F 78 14 122/76 100 03/15/17 07:44 03/15/17 07:44 03/15/17 07:44 03/15/17 07:44 03/15/17 10:00 General appearance: Present: no acute distress, well-nourished - EENT Eyes: Present: PERRL ENT: hearing intact, clear oral mucosa - Neck Neck: Present: supple, normal ROM - Respiratory Respiratory effort: normal Respiratory: bilateral: CTA - Cardiovascular Heart Sounds: Present: S1 & S2. Absent: rub, click - Extremities Extremities: pulses symmetrical, No edema Peripheral Pulses: within normal limits - Abdominal General gastrointestinal: Present: soft, non-tender, non-distended, normal bowel sounds Female genitourinary: Present: normal - Integumentary Integumentary: Present: clear, warm, dry - Musculoskeletal Musculoskeletal: gait normal, strength equal bilaterally - Psychiatric Psychiatric: appropriate mood/affect, intact judgment & insight - Neurologic Neurologic: CNII-XII intact, moves all extremities Plan Activity: no restrictions Weight Bearing Status: Full Weight Bearing Diet: regular Follow up with: PRIMARY CARE, [Primary Care Provider] - 3-5 Days Prescriptions: Apixaban [Eliquis] 10 mg PO Q12HR #14 tablet Apixaban [Eliquis] 5 mg PO BID #60 tablet HYDROcodone/APAP 5-325 [[place] 5-325 mg TAB] 1 each PO Q6H PRN #20 tablet PRN Reason: Pain, Moderate (4-6)
[2017-03-15] MEDS: ELIQUIS PO SCH (22:32)
[2017-03-16 07:26] VITALS: BP 111/71
[2017-03-16] MEDS: NORCO 5/325 PO PRN (09:52)
[2017-03-16] MEDS: ELIQUIS PO SCH (09:52)
--- NOTE | 2017-03-16 14:44 | Vascular Lab Report ---
Right Lower Extremity Venous Duplex Study: Reason for Exam: Pain of the right lower extremity. Comments on the Right: Right peroneal vein is noncompressible. The remaining veins visualized are freely compressible without evidence of internal echogenicity. Spontaneous and phasic flow is present proximally. Comments on the Left: A limited duplex study was done of the proximal veins of the left lower extremity. All veins visualized are freely compressible without evidence of internal echogenicity. Flow is spontaneous and phasic throughout. No evidence of acute or chronic thrombus is seen in any of the vessels visualized. Impression: There is evidence of acute DVT in the right peroneal vein..
== END 2017-03-16 13:00 | disposition home or self-care (01) | DRG 301 ==
LOC: ED 00:02 → 3A 10:22
PROVIDERS: ADMIT Internal Medicine; ATTEND Hospitalist
PROC: 3E0234Z Introduction of Serum, Toxoid and Vaccine into Muscle, Percutaneous Approach (ICD-10-PCS; principal; 2017-03-15)
DX: I82.491 Acute embolism and thrombosis of other specified deep vein of right lower extremity (principal); R07.9 Chest pain, unspecified; Z23 Encounter for immunization
CPT/HCPCS: 36415; 71010; 71275; 80048; 82550; 82553; 84484; 84703; 85025; 85610; 85730; 90686; 93005; 93010; 99406; J2785; Q9967

== ENCOUNTER 2017-04-08 14:51 | Emergency (ER) | payer OTHER, MEDICAID ==
[2017-04-08 15:03] VITALS: BP 129/92
[2017-04-08] MEDS ORDERED: TYLENOL #3 PO ONE (16:09)
--- NOTE | 2017-04-08 16:13 | Emergency Department Report ---
ED General Adult HPI - General Chief complaint: Extremity Injury, Lower Stated complaint: LEFT LOWER LEG/ARM PAIN Time Seen by Provider: 04/08/17 15:34 Source: patient Mode of arrival: Ambulatory Limitations: No Limitations - History of Present Illness Initial comments: 46 year old female presents with left lower leg pain and left elbow pain after slipping off a ladder earlier. states she is having aching pain to the lower leg around the tibia and pain over the olecranon process of the left elbow. Is full range of motion of both joints. States painful to walk on left leg. Denies other injury. States able to ambulate. Denies taking medication for pain. - Related Data Home Medications Medication Instructions Recorded Confirmed Last Taken Acetaminophen/Codeine [Tylenol 1 tab PO Q6H PRN 03/14/17 03/14/17 Unknown /Codeine # 3 tab] Cyclobenzaprine [Flexeril 10 MG 10 mg PO HS 03/14/17 03/14/17 Unknown TAB] Ibuprofen [Motrin 800 MG tab] 800 mg PO Q8HR PRN 03/14/17 03/14/17 Unknown Previous Rx's Medication Instructions Recorded Last Taken Type Apixaban [Eliquis] 5 mg PO BID #60 tablet 03/15/17 Unknown Rx Apixaban [Eliquis] 10 mg PO Q12HR #14 tablet 03/15/17 Unknown Rx HYDROcodone/APAP 5-325 [[place] 1 each PO Q6H PRN #20 tablet 03/15/17 Unknown Rx 5-325 mg TAB] Acetaminophen with Codeine 1 each PO Q8H #10 tablet 04/08/17 Unknown Rx [Tylenol with Codeine #3 Tablet] Cyclobenzaprine [Flexeril] 10 mg PO TID PRN #20 tablet 04/08/17 Unknown Rx Allergies Allergy/AdvReac Type Severity Reaction Status Date / Time tramadol AdvReac Vomiting Verified 04/08/17 14:57 ED Review of Systems ROS: Stated complaint: LEFT LOWER LEG/ARM PAIN Other details as noted in HPI Constitutional: denies: chills, fever Eyes: denies: eye pain, eye discharge, vision change ENT: denies: ear pain, throat pain Respiratory: denies: cough, shortness of breath, wheezing Cardiovascular: denies: chest pain, palpitations Endocrine: no symptoms reported Gastrointestinal: denies: abdominal pain, nausea, diarrhea Genitourinary: denies: urgency, dysuria, discharge Musculoskeletal: arthralgia. denies: back pain, joint swelling Skin: denies: rash, lesions Neurological: denies: headache, weakness, paresthesias Psychiatric: denies: anxiety, depression Hematological/Lymphatic: denies: easy bleeding, easy bruising ED Past Medical Hx - Past Medical History Previous Medical History?: Yes Hx Deep Vein Thrombosis: Yes (Rt leg) Hx Arthritis: Yes Hx Asthma: No Additional medical history: Miscarriage, Right knee pain for 13 years - Surgical History Past Surgical History?: Yes Additional Surgical History: D&C - Social History Smoking Status: Current Every Day Smoker - Medications Home Medications: Home Medications Medication Instructions Recorded Confirmed Last Taken Type Acetaminophen/Codeine [Tylenol 1 tab PO Q6H PRN 03/14/17 03/14/17 Unknown History /Codeine # 3 tab] Cyclobenzaprine [Flexeril 10 MG 10 mg PO HS 03/14/17 03/14/17 Unknown History TAB] Ibuprofen [Motrin 800 MG tab] 800 mg PO Q8HR PRN 03/14/17 03/14/17 Unknown History Apixaban [Eliquis] 5 mg PO BID #60 tablet 03/15/17 Unknown Rx Apixaban [Eliquis] 10 mg PO Q12HR #14 tablet 03/15/17 Unknown Rx HYDROcodone/APAP 5-325 [[place] 1 each PO Q6H PRN #20 tablet 03/15/17 Unknown Rx 5-325 mg TAB] Acetaminophen with Codeine 1 each PO Q8H #10 tablet 04/08/17 Unknown Rx [Tylenol with Codeine #3 Tablet] Cyclobenzaprine [Flexeril] 10 mg PO TID PRN #20 tablet 04/08/17 Unknown Rx ED Physical Exam - General Limitations: No Limitations General appearance: alert, in no apparent distress - Head Head exam: Present: atraumatic, normocephalic - Eye Eye exam: Present: normal appearance - ENT ENT exam: Present: mucous membranes moist - Neck Neck exam: Present: normal inspection - Respiratory Respiratory exam: Present: normal lung sounds bilaterally. Absent: respiratory distress - Cardiovascular Cardiovascular Exam: Present: regular rate, normal rhythm. Absent: systolic murmur, diastolic murmur, rubs, gallop - GI/Abdominal GI/Abdominal exam: Present: soft, normal bowel sounds - Extremities Exam Extremities exam: Present: normal inspection - Expanded Upper Extremity Exam Left Upper Arm exam: Present: normal inspection, full ROM Elbow exam: Present: normal inspection, full ROM, tenderness (tenderness over the olecranon process). Absent: swelling, abrasion, laceration, ecchymosis, crepidus, dislocation, erythema, effusion - Expanded Lower Extremity Exam Left Lower Leg exam: Present: normal inspection, full ROM, tenderness (tenderness over the tibial plateau.). Absent: swelling, abrasion, laceration, ecchymosis, deformity - Back Exam Back exam: Present: normal inspection - Neurological Exam Neurological exam: Present: alert, oriented X3 - Psychiatric Psychiatric exam: Present: normal affect, normal mood - Skin Skin exam: Present: warm, dry, intact, normal color. Absent: rash ED Course Vital Signs 04/08/17 14:57 Temperature 97.9 F Pulse Rate 110 H Respiratory 18 Rate Blood Pressure 129/92 O2 Sat by Pulse 100 Oximetry ED Medical Decision Making - Medical Decision Making Patient has normal x-ray for left tibia and fibula as well as left elbow. Patient is in no acute distress at this time. Vital signs stable for discharge. Critical care attestation.: If time is entered above; I have spent that time in minutes in the direct care of this critically ill patient, excluding procedure time. ED Disposition Clinical Impression: Contusion of left elbow and forearm, Contusion of left lower leg, initial encounter Disposition: DC-01 TO HOME OR SELFCARE Is pt being admited?: No Does the pt Need Aspirin: No Condition: Good Instructions: Contusion in Adults (ED) Prescriptions: Acetaminophen with Codeine [Tylenol with Codeine #3 Tablet] 1 each PO Q8H #10 tablet Cyclobenzaprine [Flexeril] 10 mg PO TID PRN #20 tablet PRN Reason: Muscle Spasm Referrals: BELÉN VARMA MD [Primary Care Provider] - 3-5 Days Time of Disposition: 16:14
--- NOTE | 2017-04-08 21:06 | XRay Report ---
FINAL REPORT PROCEDURE: Left tibia and fibula. TECHNIQUE: Portable AP and lateral views. HISTORY: Fall with twisting of lower leg. COMPARISON: No prior studies are available for comparison. FINDINGS: The bones appear intact without fracture or dislocation. There is narrowing of the knee joint without osteophyte formation. The ankle joint appears satisfactory. The soft tissues are unremarkable. IMPRESSION: No evidence of fracture.
--- NOTE | 2017-04-08 21:20 | XRay Report ---
FINAL REPORT PROCEDURE: Left elbow. TECHNIQUE: Three portable views. HISTORY: Injury from fall. COMPARISON: No prior studies are available for comparison. FINDINGS: The bones appear intact without fracture or dislocation. The joint spaces appear normal. The soft tissues are unremarkable. IMPRESSION: Normal study.
== END 2017-04-08 16:20 | disposition home or self-care (01) ==
LOC: ED 14:51
DX: S80.12XA Contusion of left lower leg, initial encounter (principal); S50.02XA Contusion of left elbow, initial encounter; F17.200 Nicotine dependence, unspecified, uncomplicated; I82.401 Acute embolism and thrombosis of unspecified deep veins of right lower extremity; M19.90 Unspecified osteoarthritis, unspecified site; Z88.8 Allergy status to other drugs, medicaments and biological substances; W11.XXXA Fall on and from ladder, initial encounter; Y93.89 Activity, other specified; Y92.89 Other specified places as the place of occurrence of the external cause; Y99.8 Other external cause status
CPT/HCPCS: 99283

== ENCOUNTER 2017-04-29 11:04 | Emergency (ER) | payer OTHER, MEDICAID ==
[2017-04-29 11:19] VITALS: BP 154/92
[2017-04-29 12:00] LABS: INR 0.95 (0.87-1.13); Partial Thromboplastin Time 31.2 Sec. (24.2-36.6)
[2017-04-29 12:05] LABS: Basophils % (Auto) 0.6 % (0.0-1.8); Eosinophils # (Auto) 0.2 K/mm3 (0.0-0.4); Eosinophils % (Auto) 3.2 % (0.0-4.3); Hematocrit 40.3 % (30.3-42.9); Hemoglobin 13.5 gm/dl (10.1-14.3); Lymphocytes # (Auto) 1.5 K/mm3 (1.2-5.4); Lymphocytes % (Auto) 27.6 % (13.4-35.0); Mean Corpuscular HGB Conc 33 % (30-34); Mean Corpuscular Hemoglobin 30 pg (28-32); Mean Corpuscular Volume 90 fl (79-97); Monocytes # (Auto) 0.4 K/mm3 (0.0-0.8); Monocytes % (Auto) 7.5 % (0.0-7.3); Platelet Count 237 K/mm3 (140-440); Red Blood Count 4.49 M/mm3 (3.65-5.03)
--- NOTE | 2017-04-29 12:05 | Cat Scan Report ---
CT HEAD WITHOUT CONTRAST: HISTORY: numbness, left sided numbness. TECHNIQUE: Sequential 2.5mm CT images. COMPARISON: none. FINDINGS: Cerebral Parenchyma: Within normal limits. Cerebellum: Within normal limits. Brainstem: Within normal limits. Ventricles: Normal. Sella: Normal. Extra-axial spaces: Normal. Basal Cisterns: Normal. Intracranial Hemorrhage: None. Midline Shift: None. Calvarium: Normal. Sinuses: Normal. Mastoid Air Cells: Normal. Visualized Orbits: Normal. IMPRESSION: Cranial CT scan within normal limits.
[2017-04-29 12:14] LABS: BUN/Creatinine Ratio 13; Blood Urea Nitrogen 9 mg/dL (7-17); Calcium 8.5 mg/dL (8.4-10.2); Hemolysis Index 4
== END 2017-04-29 13:45 | disposition left against medical advice (07) ==
LOC: ED 11:04
DX: R20.0 Anesthesia of skin (principal); Z53.21 Procedure and treatment not carried out due to patient leaving prior to being seen by health care provider
CPT/HCPCS: 36415; 70450; 80048; 84484; 85025; 85610; 85670; 85730; 93005; 93010

== ENCOUNTER 2017-11-12 19:16 | Emergency (ER) | payer OTHER, MEDICAID ==
[2017-11-12 19:51] VITALS: BP 114/81
--- NOTE | 2017-11-12 21:39 | Emergency Department Report ---
ED Fall HPI - General Chief Complaint: Fall Stated Complaint: FALL Time Seen by Provider: 11/12/17 21:31 Source: patient Mode of arrival: Ambulatory - History of Present Illness Initial Comments: 47-year-old -[place] female presents to the emergency room with complaint of left hip pain 5 out of 10 status post falling while getting out of the shower on Friday night. Patient reports that she's taken Motrin at 6:30 PM today which she says has not really helped her pain. Patient does have a history of a blood clot in her right leg and was treated for 6 months on Eliqus. Patient reports currently taking no medications she is allergic to tramadol. 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) Place Fall Occurred: home Loss of Consciousness: none Prolonged Down Time?: no Symptoms Prior to Fall: none Location - Extremities: Left: Thigh (hip) Severity: mild Severity scale (0 -10): 5 Quality: dull, aching Context: tripped/slipped Associated Symptoms: denies - Related Data Previous Rx's Medication Instructions Recorded Last Taken Type Ibuprofen [Motrin 800 MG tab] 800 mg PO Q8HR PRN #30 tablet 11/13/17 Unknown Rx Allergies Allergy/AdvReac Type Severity Reaction Status Date / Time tramadol AdvReac Vomiting Verified 11/12/17 19:48 ED Review of Systems ROS: Stated complaint: FALL Other details as noted in HPI Musculoskeletal: arthralgia (left hip) ED Past Medical Hx - Past Medical History Hx Deep Vein Thrombosis: Yes (Rt leg) Hx Arthritis: Yes (bilat knees) Hx Asthma: No Additional medical history: Miscarriage, Right knee pain for 13 years - Surgical History Additional Surgical History: D&C - Social History Smoking Status: Current Every Day Smoker Substance Use Type: Alcohol - Medications Home Medications: Home Medications Medication Instructions Recorded Confirmed Last Taken Type Ibuprofen [Motrin 800 MG tab] 800 mg PO Q8HR PRN #30 tablet 11/13/17 Unknown Rx ED Physical Exam - General Limitations: No Limitations General appearance: alert, in no apparent distress - Expanded Lower Extremity Exam Left Hip exam: Present: tenderness. Absent: swelling, shortening, pelvic stability Knee exam: Present: normal inspection, full ROM. Absent: tenderness Lower Leg exam: Present: normal inspection, full ROM. Absent: tenderness Ankle exam: Present: normal inspection, full ROM. Absent: tenderness, swelling Foot/Toe exam: Present: normal inspection, full ROM. Absent: tenderness, swelling Neuro vascular tendon exam: Present: no vascular compromise - Neurological Exam Neurological exam: Present: alert, oriented X3 - Psychiatric Psychiatric exam: Present: normal affect, normal mood - Skin Skin exam: Present: warm, dry, intact, normal color. Absent: rash ED Course Vital Signs 11/12/17 19:48 Temperature 98.3 F Pulse Rate 87 Respiratory 14 Rate Blood Pressure 114/81 O2 Sat by Pulse 100 Oximetry ED Medical Decision Making - Radiology Data Radiology results: report reviewed, image reviewed FINAL REPORT PROCEDURE: XR HIP 2-3V LT TECHNIQUE: LEFT hip radiographs, 2 views each, including AP view of the pelvis. HISTORY: Fall with left hip pain. COMPARISON: No prior studies are available for comparison. FINDINGS: Fracture (s) and/or Dislocation(s): None . Joint space(s): Normal. Soft tissues: Pelvic phleboliths. Bone mineralization: Normal. Foreign bodies: None. IMPRESSION: No radiographic evidence of displaced fracture. Transcribed By: ANKUR Dictated By: MICHAEL BANERJEE MD Electronically Authenticated By: MICHAEL BANERJEE MD Signed Date/Time: 11/12/172356 DD/ 56 TD/TT: 11/12/172356 - Medical Decision Making Patient's been evaluated by this provider fast track. X-ray of hips shows no radiographic evidence of displaced fracture Motrin given for pain control since patient is allergic to tramadol. Referral to orthopedics if she continues to have hip pain. Critical care attestation.: If time is entered above; I have spent that time in minutes in the direct care of this critically ill patient, excluding procedure time. ED Disposition Clinical Impression: Pain in left leg Fall Qualifiers: Encounter type: initial encounter Qualified Code(s): W19.XXXA - Unspecified fall, initial encounter Disposition: - TO HOME OR SELFCARE Is pt being admited?: No Does the pt Need Aspirin: No Condition: Stable Additional Instructions: Please take pain medication as needed. Follow-up with orthopedist for your primary care provider if symptoms persist or gets worse. Prescriptions: Ibuprofen [Motrin 800 MG tab] 800 mg PO Q8HR PRN #30 tablet PRN Reason: Pain , Severe (7-10) Referrals: KARL DUENAS MD [Primary Care Provider] - 3-5 Days CORY CAMPBELL MD [Staff Physician] - 3-5 Days Forms: Work/School Release Form(ED), Accompanied Note
[2017-11-12] MEDS ORDERED: MOTRIN PO ONE (22:32)
--- NOTE | 2017-11-13 00:02 | XRay Report ---
FINAL REPORT PROCEDURE: XR HIP 2-3V LT TECHNIQUE: LEFT hip radiographs, 2 views each, including AP view of the pelvis. HISTORY: Fall with left hip pain. COMPARISON: No prior studies are available for comparison. FINDINGS: Fracture (s) and/or Dislocation(s): None . Joint space(s): Normal. Soft tissues: Pelvic phleboliths. Bone mineralization: Normal. Foreign bodies: None. IMPRESSION: No radiographic evidence of displaced fracture.
== END 2017-11-13 00:15 | disposition home or self-care (01) ==
LOC: ED 19:16
DX: M25.552 Pain in left hip (principal); M19.90 Unspecified osteoarthritis, unspecified site; F17.200 Nicotine dependence, unspecified, uncomplicated; Z88.6 Allergy status to analgesic agent; Z86.718 Personal history of other venous thrombosis and embolism; W19.XXXA Unspecified fall, initial encounter; Y93.89 Activity, other specified; Y92.89 Other specified places as the place of occurrence of the external cause; Y99.8 Other external cause status
CPT/HCPCS: 99283

== ENCOUNTER 2018-01-16 17:51 | Emergency (ER) | payer MEDICAID, OTHER ==
[2018-01-16 19:04] LABS: Hematocrit 46.7 % (30.3-42.9); Hemoglobin 15.2 gm/dl (10.1-14.3); Mean Corpuscular HGB Conc 33 % (30-34); Mean Corpuscular Hemoglobin 29 pg (28-32); Mean Corpuscular Volume 90 fl (79-97); Platelet Count 243 K/mm3 (140-440); Red Blood Count 5.19 M/mm3 (3.65-5.03); Red Cell Distribution Width 14.5 % (13.2-15.2)
[2018-01-16 19:32] LABS: BUN/Creatinine Ratio 16; Blood Urea Nitrogen 11 mg/dL (7-17); Calcium 8.2 mg/dL (8.4-10.2); Hemolysis Index 6
[2018-01-17 00:57] LABS: INR 0.85 (0.87-1.13)
[2018-01-17] MEDS ORDERED: NITROSTAT SL PRN (01:08)
[2018-01-17] MEDS ORDERED: PEPCID IV ONE (01:08)
[2018-01-17] MEDS ORDERED: NACL 0.9% 1000 ML 1,000 ML IV ONE (01:08)
[2018-01-17] MEDS ORDERED: BABY ASPIRIN PO ONE (01:09)
--- NOTE | 2018-01-17 01:09 | Emergency Department Report ---
ED General Adult HPI - General Chief complaint: Dyspnea/Respdistress Stated complaint: SWOLLEN FEET/LEGS Time Seen by Provider: 01/17/18 00:56 Source: patient, RN notes reviewed, old records reviewed Mode of arrival: Ambulatory Limitations: No Limitations - History of Present Illness Initial comments: This is a 47-year-old female who is not known to this provider previously. The patient has a history of unprovoked right lower extremity DVT. She presents to the ER with multiple complaints. Her primary complaint is not sure about it bilateral lower extremity swelling from the knee distal which has been present for the past 5 days. It does not radiate anywhere and does not have exacerbating or relieving factors. Patient endorses a secondary complaint of central chest pain which started at 5: 00 PM on the preceding day, did not radiate to the back, arms or neck, and was not accompanied by nausea, vomiting or diaphoresis. There is no shortness of breath which is nonexertional, the patient endorses intermittent cocaine use. No recent trips, no recent surgeries, no oral contraceptives, no family history of heart disease, and the patient does not take aspirin. -: Gradual Location: chest, left, right Radiation: non-radiation Quality: aching Consistency: constant Improves with: medication Associated Symptoms: chest pain, shortness of breath. denies: confusion, cough , diaphoresis, fever/chills, headaches, loss of appetite, malaise, nausea/ vomiting, rash, seizure, syncope, weakness - Related Data Previous Rx's Medication Instructions Recorded Last Taken Type Ibuprofen [Motrin 800 MG tab] 800 mg PO Q8HR PRN #30 tablet 11/13/17 Unknown Rx Allergies Allergy/AdvReac Type Severity Reaction Status Date / Time tramadol AdvReac Vomiting Verified 11/12/17 19:48 ED Review of Systems ROS: Stated complaint: SWOLLEN FEET/LEGS Other details as noted in HPI Comment: All other systems reviewed and negative ED Past Medical Hx - Past Medical History Hx Hypertension: Yes Hx Deep Vein Thrombosis: Yes (Rt leg) Hx Arthritis: Yes (bilat knees) Hx Asthma: No Additional medical history: Miscarriage, Right knee pain for 13 years - Surgical History Past Surgical History?: Yes Additional Surgical History: D&C - Social History Smoking Status: Current Every Day Smoker Substance Use Type: None - Medications Home Medications: Home Medications Medication Instructions Recorded Confirmed Last Taken Type Ibuprofen [Motrin 800 MG tab] 800 mg PO Q8HR PRN #30 tablet 11/13/17 Unknown Rx ED Physical Exam - General Limitations: No Limitations General appearance: alert, in no apparent distress - Head Head exam: Present: atraumatic, normocephalic - Eye Eye exam: Present: normal appearance, EOMI, nystagmus - ENT ENT exam: Present: normal exam, normal orophraynx, mucous membranes moist, normal external ear exam - Neck Neck exam: Present: normal inspection, full ROM. Absent: tenderness, meningismus - Respiratory Respiratory exam: Present: normal lung sounds bilaterally. Absent: respiratory distress - Cardiovascular Cardiovascular Exam: Present: regular rate, normal rhythm, normal heart sounds. Absent: bradycardia, tachycardia, irregular rhythm, systolic murmur, diastolic murmur, rubs, gallop - GI/Abdominal GI/Abdominal exam: Present: soft, normal bowel sounds. Absent: distended, tenderness, guarding, rebound, rigid, pulsatile mass - Extremities Exam Extremities exam: Present: normal inspection, full ROM, normal capillary refill , pedal edema, other (2+ pulses noted in the bilateral upper, lower extremities. Compartments soft. No long bony tenderness. The pelvis is stable.). Absent: calf tenderness - Back Exam Back exam: Present: normal inspection, full ROM. Absent: tenderness, CVA tenderness (R), paraspinal tenderness, vertebral tenderness - Neurological Exam Neurological exam: Present: alert, oriented X3, CN II-XII intact, normal gait, other (Extraocular movements intact. Tongue midline. No facial droop. Facial sensation intact to light touch in the V1, V2, V3 distribution bilaterally. 5 and 5 strength in 4 extremities.. Sensation is intact to light touch in 4 extremities.). Absent: motor sensory deficit - Psychiatric Psychiatric exam: Present: normal affect, normal mood - Skin Skin exam: Present: warm, dry, intact, normal color. Absent: rash ED Course Vital Signs 01/16/18 01/17/18 01/17/18 18:11 01:20 01:31 Temperature 98.5 F 98.5 F Pulse Rate 87 75 79 Respiratory 20 18 Rate Blood Pressure 126/88 Blood Pressure 142/82 [Left] O2 Sat by Pulse 98 100 Oximetry 01/17/18 03:45 Temperature Pulse Rate 79 Respiratory 13 Rate Blood Pressure 124/76 Blood Pressure [Left] O2 Sat by Pulse 100 Oximetry - Reevaluation(s) Reevaluation #1: 01/17/18 01:14 Differential diagnosis, including but not limited to: Dependent edema, DVT, pulmonary embolus, pneumonia, acute coronary syndrome, pericardial effusion, myocarditis, pericarditis Assessment and plan: 47-year-old female with a primary complaint of lower extremity swelling, most likely dependent edema. Patient presented after hours and we currently do not have access to vascular lab studies. There is dependent edema that is pending. Patient can have an outpatient vascular lab study performed. However, she also endorses intermittent cocaine consumption, as well as chest pain and shortness of breath. Patient has not had any recent cardiac risk stratification, and she is moderate risk by Heart score. We will obtain CT scan of the chest to exclude thromboembolic disease/pulmonary embolus. Her symptoms wILL BE treated supportively and symptomatically. We will reassess after the CAT scan and if no pulmonary embolus is identified, admit the patient to the hospital for cardiac risk stratification. Reevaluation #2: 01/17/18 03:47 CT scan of the chest is negative for dissection, pulmonary embolus, pneumonia. Hospital physician is paged. Reevaluation #3: 01/17/18 04:02 Dr. Vazquez accepted the patient on behalf of Dr. Canela ED Medical Decision Making - Lab Data Result diagrams: 01/16/18 18:42 01/16/18 18:42 Vital Signs 01/16/18 18:11 Temperature 98.5 F Pulse Rate 87 Respiratory 20 Rate Blood Pressure 126/88 O2 Sat by Pulse 98 Oximetry Lab Results 01/16/18 01/16/18 01/17/18 Range/Units 18:42 18:42 00:00 WBC 7.6 (4.5-11.0) K/mm3 RBC 5.19 H (3.65-5.03) M/mm3 Hgb 15.2 H (10.1-14.3) gm/dl Hct 46.7 H (30.3-42.9) % MCV 90 (79-97) fl MCH 29 (28-32) pg MCHC 33 (30-34) % RDW 14.5 (13.2-15.2) % Plt Count 243 (140-440) K/mm3 PT 12.1 L (12.2-14.9) Sec. INR 0.85 L (0.87-1.13) APTT 27.0 (24.2-36.6) Sec. Sodium 143 (137-145) mmol/L Potassium 3.5 L (3.6-5.0) mmol/L Chloride 106.5 (98-107) mmol/L Carbon Dioxide 28 (22-30) mmol/L Anion Gap 12 mmol/L BUN 11 (7-17) mg/dL Creatinine 0.7 (0.7-1.2) mg/dL Estimated GFR > 60 ml/min BUN/Creatinine Ratio 16 % Glucose 112 H (65-100) mg/dL Calcium 8.2 L (8.4-10.2) mg/dL NT-Pro-B Natriuret Pep (0-450) pg/mL HCG, Quant (0-4) mIU/mL 01/17/18 01/17/18 Range/Units 00:00 00:00 WBC (4.5-11.0) K/mm3 RBC (3.65-5.03) M/mm3 Hgb (10.1-14.3) gm/dl Hct (30.3-42.9) % MCV (79-97) fl MCH (28-32) pg MCHC (30-34) % RDW (13.2-15.2) % Plt Count (140-440) K/mm3 PT (12.2-14.9) Sec. INR (0.87-1.13) APTT (24.2-36.6) Sec. Sodium (137-145) mmol/L Potassium (3.6-5.0) mmol/L Chloride (98-107) mmol/L Carbon Dioxide (22-30) mmol/L Anion Gap mmol/L BUN (7-17) mg/dL Creatinine (0.7-1.2) mg/dL Estimated GFR ml/min BUN/Creatinine Ratio % Glucose (65-100) mg/dL Calcium (8.4-10.2) mg/dL NT-Pro-B Natriuret Pep 105.9 (0-450) pg/mL HCG, Quant 2.73 (0-4) mIU/mL - EKG Data -: EKG Interpreted by Ca - EKG Data 01/17/18 01:17 Sinus, 75 beats per minutes, a long NM interval, poor R wave progression, atrial enlargement, QTC within normal limits, normal axis, abnormal EKG, not a STEMI, and compared to prior EKG from 04/29/2017, appears to be unchanged. - Radiology Data Radiology results: report reviewed Critical care attestation.: If time is entered above; I have spent that time in minutes in the direct care of this critically ill patient, excluding procedure time. ED Disposition Clinical Impression: Swelling of lower extremity, Dyspnea, Chest pain Disposition: OP ADMIT IP TO THIS HOSP Is pt being admited?: Yes Does the pt Need Aspirin: Yes Condition: Good Instructions: Chest Pain (ED) Referrals: PRIMARY CARE, [Primary Care Provider] - 3-5 Days
--- NOTE | 2018-01-17 03:08 | Cat Scan Report ---
FINAL REPORT EXAM: CT ANGIO CHEST HISTORY: cp dyspnea hx of dvt TECHNIQUE: High-resolution helical axial images were obtained of the chest during intravenous administration of iodinated contrast. Images are reconstructed in the sagittal and coronal planes. PRIORS: None. FINDINGS: There is no evidence of pulmonary embolism, the pulmonary arteries opacify normally. There is mild right hilar soft tissue attenuation consistent with mild adenopathy. The heart and thoracic aorta appear normal. The lungs are clear. Images through the upper abdomen are unremarkable. The bones are unremarkable. IMPRESSION: 1. No evidence of pulmonary embolism. 2. Mild right hilar soft tissue attenuation consistent with mild adenopathy.
--- NOTE | 2018-01-17 08:33 | History and Physical Report ---
History of Present Illness Date of examination: 01/17/18 Date of admission: 01/17/18 04:02 Chief complaint: chest pain Past History Past Medical History: arthritis Past Surgical History: No surgical history Social history: lives with family, smoking, alcohol abuse, other (cocaine abuse) Family history: stroke (Grandmother and Aunt) Medications and Allergies Allergies Allergy/AdvReac Type Severity Reaction Status Date / Time tramadol AdvReac Vomiting Verified 11/12/17 19:48 Home Medications Medication Instructions Recorded Confirmed Last Taken Type Ibuprofen [Motrin 800 MG tab] 800 mg PO Q8HR PRN #30 tablet 11/13/17 Unknown Rx Active Meds: Active Medications Nitroglycerin (Nitrostat) 0.4 mg SL .Q5MIN PRN PRN Reason: Chest Pain Exam - Constitutional Vitals: Temp Pulse Resp BP Pulse Ox 98.5 F 82 13 126/80 100 01/17/18 01:31 01/17/18 05:45 01/17/18 05:45 01/17/18 05:45 01/17/18 05:45 Results - Labs CBC & Chem 7: 01/16/18 18:42 01/16/18 18:42 Labs: Abnormal lab results 01/16/18 01/16/18 01/17/18 Range/Units 18:42 18:42 00:00 RBC 5.19 H (3.65-5.03) M/mm3 Hgb 15.2 H (10.1-14.3) gm/dl Hct 46.7 H (30.3-42.9) % PT 12.1 L (12.2-14.9) Sec. INR 0.85 L (0.87-1.13) Potassium 3.5 L (3.6-5.0) mmol/L Glucose 112 H (65-100) mg/dL Calcium 8.2 L (8.4-10.2) mg/dL Assessment and Plan Acute chest pain - could be cocaine induced vs GERD - MPI stress test ordered - Normal CE and EKG no ST changes Tobacco abuse, counselled Alcohol abuse, counselled Osteoarthritis, takes ibuprofen at home - plan for knee replacement outpt obesity, dietary recommendation DVt Px, ambulatory
[2018-01-17] MEDS ORDERED: LEXISCAN IV ONE ×2 (08:46→09:42)
[2018-01-17] MEDS ORDERED: K-DUR PO ONE (11:46)
--- NOTE | 2018-01-17 12:54 | Discharge Summary ---
Providers - Providers Date of Admission: 01/17/18 04:02 Date of discharge: 01/17/18 Attending physician: KATIUSKA GARNETT Primary care physician: SECURITY DELIVERY SPECIALIST Hospitalization Condition: Good Hospital course: Discharge Diagnosis: Acute chest pain - could be cocaine induced vs GERD - MPI stress test ordered and was negative - Normal CE and EKG no ST changes Tobacco abuse, counselled Alcohol abuse, counselled Osteoarthritis, takes ibuprofen at home - plan for knee replacement outpt obesity, dietary recommendation Disposition: DC-01 TO HOME OR SELFCARE Time spent for discharge: 34 minutes Core Measure Documentation - Palliative Care Palliative Care/ Comfort Measures: Not Applicable - Core Measures Any of the following diagnoses?: none Exam - Constitutional Vitals: Temp Pulse Resp BP Pulse Ox 98.5 F 73 13 130/74 100 01/17/18 01:31 01/17/18 10:26 01/17/18 05:45 01/17/18 10:26 01/17/18 05:45 Plan Activity: advance as tolerated Weight Bearing Status: Weight Bear as Tolerated Diet: low fat, low salt Follow up with: PRIMARY CARE, [Primary Care Provider] - 3-5 Days Prescriptions: Pantoprazole [Protonix] 40 mg PO QDAY #30 tablet
[2018-01-17 14:31] VITALS: BP 131/95
--- NOTE | 2018-01-17 19:17 | Treadmill Report ---
IV LEXISCAN NUCLEAR IMAGING IV Lexiscan nuclear imaging is being performed for evaluation of chest pain, shortness of breath, leg pains on 47-year-old female. Baseline EKG showed sinus rhythm with slightly prolonged OK interval of 223 milliseconds. Left atrial enlargement noted and QS complexes noted in V1-V2. The patient received 0.4 mg of IV Lexiscan injection. The patient tolerated it well. No EKG changes noted from baseline. The patient has resting myocardial perfusion images performed using technetium pyrophosphate 10 mCi and subsequently following IV Lexiscan. 30-45 minutes later, had myocardial perfusion images using 28 mCi of technetium pyrophosphate. Perfusion images post stress and during rest were showing normal perfusion. Gated studies post vasodilation showed normal left ventricular size along with normal wall thickening. Ejection fraction was calculated to be 73%. TID ratio was found to be 0.97. FINAL IMPRESSION: 1. The patient tolerated IV Lexiscan well with no EKG changes to suggest ischemia. 2. Perfusion imaging was found to be normal with no evidence of ischemia. 3. Normal left ventricular systolic function noted, calculated ejection fraction of 73%. 4. This is a low-risk study for cardiac events. JOB# [id number] RYAN/WONG RICH
== END 2018-01-17 14:30 | disposition admitted as inpatient to this hospital (09) ==
LOC: ED 17:51 → UNDOADMIN 01-17 04:02 → 4A 01-17 04:02
DX: M79.89 Other specified soft tissue disorders (principal); R06.00 Dyspnea, unspecified; R07.89 Other chest pain
CPT/HCPCS: 36415; 71275; 78452; 80048; 82550; 83880; 84484; 84702; 85027; 85610; 85730; 93005; 93010; 93017; 96374; 96375; 99284; A9502; J2785; J7030; Q9967; 96361

== ENCOUNTER 2018-12-21 19:53 | Emergency (ER) | payer MEDICAID, OTHER ==
[2018-12-21 20:58] VITALS: BP 138/91
--- NOTE | 2018-12-21 21:51 | XRay Report ---
CHEST PA AND LATERAL VIEWS INDICATION: COUGH. COMPARISON: None FINDINGS: Support devices: None Heart: Normal Lungs/Pleura: No acute pulmonary or pleural findings. IMPRESSION: 1. Negative study. Signer Name: Philip Chavez MD Signed: 12/21/2018 9:46 PM Workstation Name: [id number]
--- NOTE | 2018-12-21 23:30 | Emergency Department Report ---
- General Chief Complaint: Upper Respiratory Infection Stated Complaint: COUGH,RUNNY NOSE Time Seen by Provider: 12/21/18 21:06 Source: patient Mode of arrival: Ambulatory Limitations: No Limitations - History of Present Illness Initial Comments: 48-year-old female with a past medical history of hypertension and previous DVT not currently on anticoagulation presents to the Hospital complains of feeling sick for the past 4 days. She complains of a nonproductive cough, nasal congestion, and frontal sinus pressure. She has been exposed to sick children and her boyfriend is also sick. She denies fever, nausea, vomiting, diarrhea, chest pain, shortness of breath, or abdominal pain. [id number] medication without relief. - Related Data Previous Rx's Medication Instructions Recorded Last Taken Type Ibuprofen [Motrin 800 MG tab] 800 mg PO Q8HR PRN #30 tablet 11/13/17 Unknown Rx Pantoprazole [Protonix] 40 mg PO QDAY #30 tablet 01/17/18 Unknown Rx Ketorolac [Toradol] 10 mg PO Q6H PRN #12 tablet 09/11/18 Unknown Rx methOCARBAMOL [Robaxin TAB] 500 mg PO Q6H PRN #14 tablet 09/11/18 Unknown Rx Azithromycin [Zithromax Z-SMOOTH] 1 dose PO DAILY 5 Days tab 12/21/18 Unknown Rx Benzonatate [Tessalon Perles] 100 mg PO Q8HR PRN #20 capsule 12/21/18 Unknown Rx Allergies Allergy/AdvReac Type Severity Reaction Status Date / Time tramadol AdvReac Vomiting Verified 11/12/17 19:48 ED Review of Systems ROS: Stated complaint: COUGH,RUNNY NOSE Other details as noted in HPI Comment: All other systems reviewed and negative ED Past Medical Hx - Past Medical History Hx Hypertension: Yes Hx Deep Vein Thrombosis: Yes (Rt leg) Hx Arthritis: Yes (bilat knees) Hx Asthma: No Additional medical history: Miscarriage, Right knee pain for 13 years - Surgical History Additional Surgical History: D&C - Social History Smoking Status: Current Every Day Smoker Substance Use Type: Alcohol, Marijuana - Medications Home Medications: Home Medications Medication Instructions Recorded Confirmed Last Taken Type Ibuprofen [Motrin 800 MG tab] 800 mg PO Q8HR PRN #30 tablet 11/13/17 Unknown Rx Pantoprazole [Protonix] 40 mg PO QDAY #30 tablet 01/17/18 Unknown Rx Ketorolac [Toradol] 10 mg PO Q6H PRN #12 tablet 09/11/18 Unknown Rx methOCARBAMOL [Robaxin TAB] 500 mg PO Q6H PRN #14 tablet 09/11/18 Unknown Rx Azithromycin [Zithromax Z-SMOOTH] 1 dose PO DAILY 5 Days tab 12/21/18 Unknown Rx Benzonatate [Tessalon Perles] 100 mg PO Q8HR PRN #20 capsule 12/21/18 Unknown Rx ED Physical Exam - General Limitations: No Limitations - Other Other exam information: General: No acute distress Head: Atraumatic, no frontal sinus tenderness Eyes: Normal appearance, Pupils equal and reactive to light, extraocular movements intact ENT: Normal oropharynx, nasal congestion Neck: Normal appearance, no posterior or midline tenderness, no meningismus Chest: Clear to auscultation bilaterally, no wheezes, rales, or crackles CV: Regular rate and rhythm Abdomen: soft, normal bowel sounds, nontender, nondistended, no rebound or guarding Back: Nontender Extremity: Normal inspection, full range of motion, nontender Neuro: Alert and oriented 3, speech clear, no gross motor or sensory deficit Skin: No rash, redness, warmth ED Course Vital Signs 12/21/18 20:56 Temperature 98 F Pulse Rate 75 Respiratory 18 Rate Blood Pressure 138/91 O2 Sat by Pulse 99 Oximetry ED Medical Decision Making - Radiology Data Radiology results: report reviewed Chest x-ray: No acute finding - Medical Decision Making Chest x-ray unremarkable. Patient likely has a viral illness. We'll cover her with Z-Smooth for atypical pneumonia. No infiltrate on chest x-ray. Symptomatic treatment will be provided. Advised not to use [id number] decongestant and a history of hypertension. Patient states she does have saline nasal spray at home. - Differential Diagnosis pneumonia, bronchitis, URI Critical Care Time: No Critical care attestation.: If time is entered above; I have spent that time in minutes in the direct care of this critically ill patient, excluding procedure time. ED Disposition Clinical Impression: Viral URI with cough Disposition: DC/TX-65 PSY HOSP/PSY UNIT Is pt being admited?: No Does the pt Need Aspirin: No Condition: Stable Instructions: Viral Syndrome (ED) Additional Instructions: Take the medication as prescribed. Follow-up with your doctor or the doctor/clinic provided. Return is symptoms worsen as indicated by your discharge instructions. Continue to use saline nasal spray to help with nasal congestion. Prescriptions: Benzonatate [Tessalon Perles] 100 mg PO Q8HR PRN #20 capsule PRN Reason: Cough Azithromycin [Zithromax Z-SMOOTH] 1 dose PO DAILY 5 Days tab Referrals: your, doctor [Other] - 3-5 Days Time of Disposition: 23:30
== END 2018-12-21 23:42 ==
LOC: ED 19:53
DX: J06.9 Acute upper respiratory infection, unspecified (principal); I10 Essential (primary) hypertension; M19.90 Unspecified osteoarthritis, unspecified site; F17.200 Nicotine dependence, unspecified, uncomplicated; F12.10 Cannabis abuse, uncomplicated; Z88.5 Allergy status to narcotic agent; Z79.1 Long term (current) use of non-steroidal anti-inflammatories (NSAID); Z79.899 Other long term (current) drug therapy; Z86.718 Personal history of other venous thrombosis and embolism
CPT/HCPCS: 71046

== ENCOUNTER 2019-07-03 17:38 | Emergency (ER) | payer MEDICARE ==
[2019-07-03 19:54] VITALS: BP 118/81
--- NOTE | 2019-07-03 19:58 | Emergency Department Report ---
Chief Complaint: Dental/Oral Stated Complaint: LFT SIDE ABCESS PAIN Time Seen by Provider: 07/03/19 19:50 - HPI History of Present Illness: This is a 48 y.o. F. that presents to the ER with dental pain. Patient states she chipped #8 tooth yesterday and can't control the pain. States she is planning on walking to [facility] on Friday. Denies drooling, dysphagia, sore throat, fever, chills. - ROS Review of Systems: ROS: Stated complaint: dental pain Other details as noted in HPI Comment: All other systems reviewed and negative - Exam Vital Signs: Vital Signs 07/03/19 17:44 Temperature 98.9 F Pulse Rate 67 Respiratory 18 Rate Blood Pressure 118/81 O2 Sat by Pulse 100 Oximetry Physical Exam: - General Limitations: No Limitations General appearance: alert, in no apparent distress - Head Head exam: Present: atraumatic, normocephalic - Eye Eye exam: Present: normal appearance - ENT ENT exam: Present: #8, avulsion on lateral, ttp, no gingival swelling, luvula midline, mucous membranes moist - Neck Neck exam: Present: normal inspection, full ROM. Absent: lymphadenopathy - Respiratory Respiratory exam: Present: normal lung sounds bilaterally. Absent: respiratory distress - Cardiovascular Cardiovascular Exam: Present: regular rate, normal rhythm. Absent: systolic murmur, diastolic murmur, rubs, gallop - GI/Abdominal GI/Abdominal exam: Present: soft, normal bowel sounds - Extremities Exam Extremities exam: Present: normal inspection - Back Exam Back exam: Present: normal inspection - Neurological Exam Neurological exam: Present: alert, oriented X3 - Psychiatric Psychiatric exam: Present: normal affect, normal mood - Skin Skin exam: Present: warm, dry, intact, normal color. Absent: rash MSE screening note: Focused history and physical exam performed. Due to findings the following was ordered: ED Medical Decision Making - Medical Decision Making This is a 48-year-old female that presents with dental pain. Patient is stable and was examined by me. There are no signs of dental abscess. Patient will be started on pain medication. Patient will follow-up with [facility] next week. Discussed plan with patient. She agreed with ER plan. Discharged home stable with strict return instructions. ED Disposition for MSE Clinical Impression: Tooth ache Tooth avulsion Qualifiers: Encounter type: initial encounter Qualified Code(s): S03.2XXA - Dislocation of tooth, initial encounter Disposition: TO HOME OR SELFCARE Is pt being admited?: No Condition: Stable Instructions: Acute dental trauma (ED), Toothache (ED) Prescriptions: Ibuprofen [Motrin 800 MG tab] 800 mg PO Q8HR PRN #30 tablet PRN Reason: Pain, Moderate (4-6) Acetaminophen/Codeine [Tylenol /Codeine # 3 tab] 1 tab PO Q6H PRN #12 tab PRN Reason: Pain , Severe (7-10) Referrals: [facility] [Outside] - 3-5 Days [facility] [Outside] - 3-5 Days [facility] [Outside] - 3-5 Days [facility] [Outside] - 3-5 Days Time of Disposition: 20:13
== END 2019-07-03 20:55 | disposition home or self-care (01) ==
LOC: ED 17:38
DX: S03.2XXA Dislocation of tooth, initial encounter (principal); I10 Essential (primary) hypertension; M17.0 Bilateral primary osteoarthritis of knee; Z86.718 Personal history of other venous thrombosis and embolism; Z98.890 Other specified postprocedural states; X58.XXXA Exposure to other specified factors, initial encounter; Y93.89 Activity, other specified; Y92.89 Other specified places as the place of occurrence of the external cause; Y99.8 Other external cause status
CPT/HCPCS: 99282

== ENCOUNTER 2021-07-15 16:10 | Emergency (ER) | payer MEDICARE ==
[2021-07-15 17:26] VITALS: BP 122/73
== END 2021-07-16 18:00 | disposition left against medical advice (07) ==
LOC: ED 16:10
DX: I82.402 Acute embolism and thrombosis of unspecified deep veins of left lower extremity (principal); Z53.21 Procedure and treatment not carried out due to patient leaving prior to being seen by health care provider